=== PATIENT | male | born 2005 | race African-American/Black ===

== ENCOUNTER 2024-12-09 21:06 | Emergency (ER) | payer MEDICAID, OTHER, SELFPAY ==
[2024-12-09 21:09] VITALS: BP 132/64; PULSE 88; RESP 18; TEMP 37; O2SAT 97; BMI 37.9
[2024-12-09 22:33] LABS: Appearance Urine UA CLEAR; Bilirubin Urine UA NEGATIVE (NEGATIVE); Color Urine UA YELLOW; Glucose Urine UA NEGATIVE (Negative); Ketones Urine UA TRACE (NEGATIVE); Leukocyte Esterase Urine UA 1+ (NEGATIVE); Nitrite Urine UA NEGATIVE (Negative); Occult Blood Urine UA NEGATIVE (Negative); Protein Urine UA NEGATIVE (Negative); Specific Gravity Urine UA 1.025 (1.000-1.035); Urobilinogen Urine UA 0.2 E.U./dL (0.2); pH Urine UA 5.5 (4.5-8.0)
[2024-12-09 22:37] LABS: Urine Volume 10mL (spun)
[2024-12-09 22:38] LABS: Bacteria Urine None Seen; RBC Urine None Seen (0-5/HPF); Squamous Epithelial Cell Urine 0-1 /HPF (0-5/HPF); WBC Urine 10-30/HPF (0-5/HPF)
[2024-12-09 22:39] LABS: Culture Indicated Urine Specimen Cultured
[2024-12-10] LABS: Urine N gonorrhoeae NOT DETECTED
--- NOTE | 2024-12-10 00:01 | ED_ITS ---
HPI - Male Genitourinary General Chief complaint: Urogenital-Male Stated complaint: bleeding from genitalia Time Seen by Provider: 12/09/24 23:19 Source: patient Mode of arrival: Ambulatory History of Present Illness HPI Narrative: 19-year-old male complains of bleeding from the top of the foreskin, believes he might have been masturbating more frequently and more aggressively, had skin lesion and soreness that bled earlier this afternoon, stopped bleeding. Denies painful urination. Denies urethral discharge. Denies known STI symptoms. Has skin soreness in the top of the skin in the internal aspect of the foreskin. Denies history of or exposure to STIs. Does not take blood thinner medications. No known systemic bleeding problems. Related Data Previous Rx's Medication Instructions Recorded doxycycline hyclate 100 mg capsule 100 mg PO BID #14 caps 12/10/24 Allergies Allergy/AdvReac Type Severity Reaction Status Date / Time No Known Drug Allergies Allergy Verified 12/09/24 21:09 Patient History Social History Smoking Status: Current every day smoker Smoking Status: Current every day smoker tobacco type: vaping Exam Narrative Exam Narrative: GENERAL: Well-developed patient, in mild distress. HEAD: Atraumatic. Normocephalic. EYES: Pupils equal round and reactive. Extraocular motions intact. No scleral icterus. No injection or drainage. ENT: Nose without bleeding, purulent drainage. Throat without erythema, tonsillar hypertrophy or exudate. Airway patent. NECK: Trachea midline. Non tender CARDIOVASCULAR: Regular rate and rhythm without murmurs, gallops, or rubs. RESPIRATORY: Clear to auscultation. Breath sounds equal bilaterally. No wheezes, rales, or rhonchi. GASTROINTESTINAL: Abdomen soft, non-tender, nondistended. : uncircumcised foreskin, can retract, no meatal lesions or discharge, some small erythema dorsal internal surface of superior foreskin, no vesicles, no discrete ulcerations. No discharge at foreskin. EXTREMITIES: No edema or joint tenderness. BACK: Nontender without deformity or crepitance. No flank tenderness. NEURO: AOx3. Motor functions grossly nonfocal SKIN: No rash or erythema of visible areas Initial Vital Signs Initial Vital Signs: Vital Signs Temperature 98.6 F 12/09/24 21:09 Pulse Rate 88 12/09/24 21:09 Respiratory Rate 18 12/09/24 21:09 Blood Pressure 132/64 12/09/24 21:09 Pulse Oximetry 97 12/09/24 21:09 Oxygen Delivery Method Room Air 12/09/24 21:09 Course Orders Ordered: Discontinued Medications Ceftriaxone Sodium (Ceftriaxone 2,000 Mg Vial) 1,000 mg IM NOW ONE Stop: 12/10/24 00:12 Last Admin: 12/10/24 00:23 Dose: 1,000 mg Documented By: GILL Doxycycline Hyclate (Doxycycline Hyclate 100 Mg Tablet) 100 mg PO NOW ONE Stop: 12/10/24 00:12 Last Admin: 12/10/24 00:24 Dose: 100 mg Documented By: LS Vital Signs Vital signs: Vital Signs - 8 hr 12/09/24 21:09 Temperature 98.6 F Pulse Rate 88 Respiratory Rate 18 Blood Pressure 132/64 Pulse Oximetry 97 Oxygen Delivery Method Room Air MDM - Male Genitourinary Lab Data Attestation: I reviewed the patient's lab results. Lab results narrative: Urine panel negative. Urine chlamydia positive. Urine gonorrhea negative. Labs: Lab Results 12/09/24 Range/Units 22:28 Urine Color Yellow Urine Appearance Clear Urine pH 5.5 (4.5-8.0) Ur Specific [place] 1.025 (1.000-1.035) Urine Protein Negative (Negative) Urine Glucose (UA) Negative (Negative) g/dL Urine Ketones Trace H (NEGATIVE) Urine Occult Blood Negative (Negative) Urine Nitrate Negative (Negative) Urine Bilirubin Negative (NEGATIVE) Urine Urobilinogen 0.2 (0.2) E.U./dL Ur Leukocyte Esterase 1+ H (NEGATIVE) Urine RBC None seen (0-5/HPF) Urine WBC 10-30/hpf H (0-5/HPF) Ur Squamous Epith Cells 0-1 /hpf (0-5/HPF) Urine Bacteria None seen (None) Ur Culture Indicated? Specimen cultured Vol Urine Centrifuged 10ml (spun) Ur Chlamydia DNA (PCR) Detected H N gonorrhoeae DNA (PCR) Not detected MDM Narrative Medical decision making narrative: 19yo male with transient resolved beelding from foreskin, though he had been masturbating too vigourously, denies history prior STIs. Small superior abrasion area redness noted inner mucosal surface foreskin. Urine GC/chlamydia was positive for chlamydia, negative for GC. IM ceftriaxone, PO doxycycline. Rx for further doxycycline to his pharmacy. Advised to inform his sexual partners. FU urology advised. Clinic contact info provided. Discharge Plan Departure Patient Disposition: Home Clinical Impression: Chlamydia trachomatis infection of genitourinary site Instructions: Informing Partners of STI Patients Reduces Ongoing and Recurrent Sexually T, Facts About Sexually Transmitted Infections Activity Restrictions/Additional Instructions: Penile lesion possibly felt by history to possible be due to abrasion and overuse, skin lesion noted in the uncircumcised penile skin. Urine testing for chlamydia and gonorrhea was positive for chlamydia, negative for gonorrhea. This is a sexually transmitted disease. We usually we will empirically treat for gonorrhea as well, intramuscular dose of ceftriaxone there was therefore given. Doxycycline course of oral antibiotic is useful for chlamydia, 1st dose now, further course of antibiotics sent to your pharmacy. Please take all the antibiotics as prescribed. Consider recheck of the penile skin lesion area after course of completion. It is possible this sexually transmitted disease chlamydia could be associated with another sexually transmitted disease that is causing the skin lesion, it isn't always by or because of the chlamydia itself. You could for example have herpes lesions or some other sexually transmitted skin sore etiology as well. For now we will go ahead and start treatment for chlamydia. Consider follow up with Urology, clinic contact information provided. Consider alert of your sexual partners that they can get it tested and evaluated. Use barrier methods for any sexual contact until documented to be clear of sexually transmitted diseases. Prescriptions: New doxycycline hyclate 100 mg capsule 100 mg PO BID Qty: 14 0RF Referrals: Wilian Joseph DO [Physician] - Maurice De Guzman MD [Physician] - Stand Alone Forms: Patient Portal/API/Survey
[2024-12-10 00:03] LABS: Urine Chlamydia DETECTED
[2024-12-10] MEDS: cefTRIAXone 2,000 MG VIAL 1000 MG IM (00:23)
[2024-12-10] MEDS: DOXYCYCLINE HYCLATE 100 MG TABLET PO (00:24)
[2024-12-10 01:00] VITALS: BP 131/84; PULSE 76; RESP 19; O2SAT 97
== END 2024-12-10 01:00 | disposition home or self-care (01) ==
PROVIDERS: Emergency Provider Emergency Medicine
DX: A74.89 Other chlamydial diseases (principal)
CPT/HCPCS: 81001; 87086; 87491; 87591; 96372; 99283; J0696

== ENCOUNTER 2025-07-15 18:42 | Emergency (ER) | payer OTHER, SELFPAY ==
[2025-07-15 19:21] VITALS: BP 152/98; PULSE 101; RESP 17; TEMP 36.4; O2SAT 97; BMI 23.7
--- NOTE | 2025-07-15 19:21 | EKG_ITS ---
[address] [address] Test Date: 2025-07-15 Pat Name: Joe Pederson Department: [facility] Room: Gender: Male Furniture Mover: JALEN : 2005 Requested By: Order Number: [id number] Reading MD: Rafi Garcia Measurements Intervals [place] Rate: 91 P: 61 MA: 138 QRS: 49 QRSD: 86 T: 45 QT: 356 QTc: 437 Interpretive Statements Normal sinus rhythm Electronically Signed On 07-20-2025 12:28:15 PST by Rafi Garcia
--- NOTE | 2025-07-15 19:24 | DI.RAD.S_ITS ---
PROCEDURE: XR CHEST 1V INDICATIONS: Chest Pain TECHNIQUE: One view of the chest was acquired. COMPARISON: None. FINDINGS: Surgical changes and devices: None. Lungs and pleura: Lungs are clear. No pleural effusions or pneumothorax. Mediastinum: Mediastinal contours appear normal. Heart size is normal. Bones and chest wall: No suspicious bony lesions. Overlying soft tissues appear unremarkable. IMPRESSION: No acute cardiopulmonary abnormalities or focal consolidation. Dictated by: Gurpreet Marr M.D. on 07/15/2025 at 20:21 Approved by: Gurpreet Marr M.D. on 07/15/2025 at 20:21
[2025-07-15 19:57] LABS: Hematocrit 46.6 % (41-53); Hemoglobin 15.7 g/dL (13.5-17.5); Mean Corpuscular HGB Conc 33.8 % (30-36); Mean Corpuscular Hemoglobin 29.3 PG (26-34); Mean Corpuscular Volume 86.8 fL (80-100); Platelet Count 312 X10^3/uL (150-400)
[2025-07-15 19:58] LABS: Add Manual Diff / Slide Review YES
[2025-07-15 20:02] LABS: INR 1.1 (0.9-1.3); Prothrombin Time 12.1 SECONDS (9.4-12.5)
[2025-07-15 20:06] LABS: PTT Partial Thromboplastin Tim 32 SECONDS (25.1-36.5)
[2025-07-15 20:09] LABS: Alanine Aminotransferase 39 IU/L (<50); Albumin 4.9 g/dL (3.5-5.0); Albumin Globulin Ratio 1.5 (1.0-2.8); Alkaline Phosphatase 51 U/L (38-126); Blood Urea Nitrogen 15 mg/dL (9-20); Calcium 9.3 mg/dL (8.4-10.2); Carbon Dioxide 25 mmol/L (22-32); Chloride 103 mmol/L (98-107); Creatine Kinase 217 U/L (55-170); Estimated Glomerular Filt Rate > 60 mL/min (>60); Globulin 3.3 g/dL (1.7-4.1); Glucose 103 mg/dL (70-99); HEMOLYSIS 20 (0-50); Lipase 42 U/L (23-300); Magnesium 1.8 mg/dL (1.6-2.3); Potassium 3.8 mmol/L (3.4-5.1); Sodium 139 mmol/L (137-145); Total Protein 8.2 g/dL (6.3-8.2)
[2025-07-15 20:11] LABS: Eosinophils Percent Manual 2.0 % (2-4); Lymphocytes Percent Manual 15.0 % (25-45); Monocytes Percent Manual 4.0 % (2-11); Neutrophils Absolute Manual 8690 /uL (3000-5900); RBC Morphology Normal Morphology; Segmented Neutrophils Percent 79.0 % (38-70); Total Cells Counted 100
[2025-07-15 20:19] LABS: NT-proBNP (BNP-Adult 18+) 111 pg/mL (<125); Troponin I < 0.012 ng/mL (0.01-0.034)
[2025-07-15 21:54] LABS: Troponin I < 0.012 ng/mL (0.01-0.034)
[2025-07-15 23:21] VITALS: PULSE 94; O2SAT 96
[2025-07-15 23:22] VITALS: BP 133/88; PULSE 87; O2SAT 96
[2025-07-15 23:30] VITALS: BP 131/69; PULSE 68; RESP 11; O2SAT 97
[2025-07-15] MEDS: ASPIRIN 81 MG CHEW TAB 324 MG PO (23:40)
--- NOTE | 2025-07-15 23:42 | ED_ITS ---
HPI - Chest Pain General Chief Complaint: Chest Pain Stated Complaint: chest pain x 2weeks Time Seen by Provider: 07/15/25 23:42 Source: patient Mode of arrival: Ambulatory History of Present Illness HPI narrative: Patient is a healthy 19-year-old male presenting today with 2 weeks of sternal chest pain. He says it hurts every time he breathes or moves. Sometimes it wakes him up at night. He is unsure of any significant injury. But reports that he has been having cough for the last couple of weeks. No significant fevers sometimes the cough is mucousy but no significant production. Denies any significant shortness of breath.He has not had any recent travel no leg pain. No family history of coronary artery disease. He does smoke marijuana but does not smoke cigarettes. He has not taken anything at home for pain. Related Data Previous Rx's ?Medication ?Instructions ?Recorded doxycycline hyclate 100 mg capsule 100 mg PO BID #14 c aps 12/10/24 Allergies Allergy/AdvReac Type Severity Reaction Status Date / Time No Known Drug Allergies Allergy Verified 04/15/25 13:40 Patient History tobacco type: vaping Exam Initial Vital Signs Initial Vital Signs: Vital Signs Temperature 97.5 F L 07/15/25 19:21 Pulse Rate 101 H 07/15/25 19:21 Respiratory Rate 17 07/15/25 19:21 Blood Pressure 152/98 H 07/15/25 19:21 Pulse Oximetry 97 07/15/25 19:21 Oxygen Delivery Method Room Air 07/15/25 19:21 GENERAL: Alert pleasant well-appearing 19-year-old male and in no acute distress. HEENT: Head atraumatic,EOMI, pupils reactive, face symmetric, moist mucous membranes CARDIOVASCULAR: Regular rate and rhythm without murmurs, rubs or gallops. Pain is slightly reproducible pushing on the sternum RESPIRATORY: Breath sounds equal bilaterally, no wheezes rales or rhonchi. ABDOMEN: Soft, nontender. Normoactive bowel sounds all 4 quadrants. No guarding or rebound. Negative Perez's sign EXTREMITIES: Normal range of motion, no clubbing or edema. Neurovascularly intact NEUROLOGICAL: Alert and oriented x4.Normal gait and speech. Cranial nerves II through XII grossly intact. SKIN: Warm, dry, no laceration, no petechiae, no rashes or lesions. Scores PERC Score Age greater than or equal to 50 years: No Heart rate greater than or equal to 100 bpm: No Room Air O2 Sat less than 95%: No Unilateral leg swelling: No Recent trauma or surgery: No Hemoptysis: No Prior PE or DVT: No Hormone Use: No Total PERC Score: 0 Course Orders Ordered: ED Orders 07/15/25 19:21 EKG-12 Lead Stat 07/15/25 19:24 XR chest 1V Stat 07/15/25 19:38 Complete Blood Count AUTO DIFF Stat Comprehensive Metabolic Panel Stat Lipase Stat Magnesium Stat NT-proBNP (BNP-Adult 18+) Stat PTT Partial Thromboplastin Gabriel Stat Prothrombin Time INR Stat Troponin & CK Cardiac Panel Stat 07/15/25 21:26 Trop I [Troponin I] Stat Discontinued Medications Aspirin (Aspirin 81 Mg Chew Tab) 324 mg PO NOW ONE Stop: 07/15/25 19:25 Last Admin: 07/15/25 23:40 Dose: 324 mg Documented By: ANNA Ketorolac Tromethamine (Ketorolac 30 Mg/Ml Vial) 15 mg IV NOW ONE Stop: 07/15/25 23:53 Last Admin: 07/16/25 00:08 Dose: 15 mg Documented By: ANNA Vital Signs Vital signs: Vital Signs - 8 hr 07/15/25 19:21 07/15/25 23:21 07/15/25 23:22 Temperature 97.5 F L Pulse Rate 101 H 94 H 87 Respiratory Rate 17 Blood Pressure 152/98 H Pulse Oximetry 97 96 96 Oxygen Delivery Method Room Air 07/15/25 23:22 07/15/25 23:30 07/15/25 23:30 Temperature Pulse Rate 68 Respiratory Rate 11 L Blood Pressure 133/88 131/69 Pulse Oximetry 97 Oxygen Delivery Method Room Air 07/16/25 00:32 Temperature 98.2 F Pulse Rate 60 Respiratory Rate 17 Blood Pressure 131/65 Pulse Oximetry 98 Oxygen Delivery Method Room Air MDM - Chest Pain Lab Data 07/15/25 19:38 07/15/25 19:38 Labs: Lab Results 07/15/25 07/15/25 Range/Units 19:38 21:26 WBC 11.0 (4.5-11.0) X10^3/uL RBC 5.37 (4.5-5.9) X10^6/uL Hgb 15.7 (13.5-17.5) g/dL Hct 46.6 (41-53) % MCV 86.8 (80-100) fL MCH 29.3 (26-34) PG MCHC 33.8 (30-36) % RDW 13.6 (11.6-14.8) % Plt Count 312 (150-400) X10^3/uL Neut % (Auto) Not Reportable Lymph % (Auto) Not Reportable Stokes % (Auto) Not Reportable Eos % (Auto) Not Reportable Baso % (Auto) Not Reportable Lymph # (Auto) Not Reportable [place] # (Auto) Not Reportable Baso # (Auto) Not Reportable Total Counted 100 Seg Neutrophils % 79.0 H (38-70) % Lymphocytes % (Manual) 15.0 L (25-45) % Monocytes % (Manual) 4.0 (2-11) % Eosinophils % (Manual) 2.0 (2-4) % Neutrophils # (Manual) 8690 H (2671-5986) /uL RBC Morphology Normal morphology PT 12.1 (9.4-12.5) SECONDS INR 1.1 (0.9-1.3) APTT 32 (25.1-36.5) SECONDS Sodium 139 (137-145) mmol/L Potassium 3.8 (3.4-5.1) mmol/L Chloride 103 (98-107) mmol/L Carbon Dioxide 25 (22-32) mmol/L BUN 15 (9-20) mg/dL Creatinine 0.97 (0.66-1.25) mg/dL Estimated GFR > 60 (>60) mL/min BUN/Creatinine Ratio 15.5 (6-22) Glucose 103 H (70-99) mg/dL Calcium 9.3 (8.4-10.2) mg/dL Magnesium 1.8 (1.6-2.3) mg/dL Total Bilirubin 0.7 (0.2-1.3) mg/dL AST 34 (17-59) IU/L ALT 39 (<50) IU/L Alkaline Phosphatase 51 (38-126) U/L Total Creatine Kinase 217 H (55-170) U/L Troponin I < 0.012 < 0.012 (0.01-0.034) ng/mL NT-Pro-B Natriuret Pep 111 (<125) pg/mL Total Protein 8.2 (6.3-8.2) g/dL Albumin 4.9 (3.5-5.0) g/dL Globulin 3.3 (1.7-4.1) g/dL Albumin/Globulin Ratio 1.5 (1.0-2.8) Lipase 42 (23-300) U/L Imaging Data Chest x-ray: Radiologist's Impression: PROCEDURE: XR CHEST 1V INDICATIONS: Chest Pain TECHNIQUE: One view of the chest was acquired. COMPARISON: None. FINDINGS: Surgical changes and devices: None. Lungs and pleura: Lungs are clear. No pleural effusions or pneumothorax. Mediastinum: Mediastinal contours appear normal. Heart size is normal. Bones and chest wall: No suspicious bony lesions. Overlying soft tissues appear unremarkable. IMPRESSION: No acute cardiopulmonary abnormalities or focal consolidation. Dictated by: Gurpreet Marr M.D. on 07/15/2025 at 20:21 ECG Data Attestation: I personally reviewed and interpreted this ECG as follows: Prior ECG tracings: available for review Interpretation: Normal sinus rhythm rate 91 ID interval 138 QRS [address] changes no ID depression no evidence of pericarditis MDM Narrative Medical decision making narrative: MDM CC: Chest pain Complicating co-morbidities: Smokes marijuana Data collected from: Patient family Medical records reviewed: Minimal ED record Differential considered: Pericarditis coming acute coronary syndrome, no narrowing and gamma pneumothorax Exam documented above, pertinent findings include: Slightly reproducible sternal pain breath sounds are clear no peripheral edema no calf pain Lab Test results independently reviewed as above. Pertinent findings: CBC no leukocytosis or anemia CMP no electrolyte abnormality no GIULIANA troponin negative x2 Independently reviewed EKG as above: Sinus rhythm no ischemia no evidence of pericarditis Imaging studies independently reviewed: Chest x-ray no acute cardiopulmonary process Consultations: [ ] Treatments: Toradol Re-evaluations: [ ] Discussion: Patient 19-year-old male presenting to day with sternal pain ongoing for the last 2 weeks. It is mostly reproducible with palpation most consistent with musculoskeletal. Workup in the emergency department is overall reassuring. He had a brief elevated heart rate of 101 but PERC is otherwise negative. Low suspicion for pulmonary embolism. He is offered Tessalon Perles and albuterol but declines at this time. Overall appears well vitals stable Discharge Plan Departure Patient Disposition: Home Clinical Impression: Acute costochondritis Instructions: Costochondritis Activity Restrictions/Additional Instructions: *You have been diagnosed with costochondritis *What to do: At this time increase activity as tolerated and should start to improve over the next 1-2 *Continue to take medications as directed Motrin 600 mg every 6-8 hours if needed for pain *Follow up with your primary care provider in 2-3 days or call [phone] *Return to ER if you should have increasing chest pain shortness of breath weakness or any new, worsening or concerning symptoms Prescriptions: No Action doxycycline hyclate 100 mg capsule 100 mg PO BID Qty: 14 0RF Referrals: Miscellaneous,Doctor, [Primary Care Provider, Medical] Stand Alone Forms: Patient Portal/API
[2025-07-16] MEDS: KETOROLAC 30 MG/ML VIAL 15 MG IV (00:08)
[2025-07-16 00:32] VITALS: BP 131/65; PULSE 60; RESP 17; TEMP 36.8; O2SAT 98
== END 2025-07-16 00:34 | disposition home or self-care (01) ==
PROVIDERS: Emergency Medicine; Emergency Provider Emergency Medicine
DX: M94.0 Chondrocostal junction syndrome [Tietze] (principal); F12.90 Cannabis use, unspecified, uncomplicated
CPT/HCPCS: 36415; 71045; 80053; 82550; 83690; 83735; 83880; 84484; 85007; 85025; 85610; 85730; 93005; 96374; 99284; J1885